=== PATIENT | female | born 1985 | race African-American/Black ===

== ENCOUNTER 2024-03-07 14:13 | Outpatient (REF) | payer MEDICAID, SELFPAY ==
[2024-03-07 16:11] LABS: MANUAL DIFF FLAG NO
[2024-03-07 16:19] LABS: Basophils Percent Auto 0.4 % (0-2); Eosinophils Absolute Auto 0.2 X10*3/uL (0.0-0.4); Eosinophils Percent Auto 2.2 % (0-4); Hematocrit 43.9 % (37.0-47.0); Hemoglobin 14.3 g/dl (12.0-16.0); Imm Gran Abs Auto 0.01 X10*3/uL (0.00-0.03); Imm Gran Pct Auto 0.1 % (0.0-0.4); Lymphocytes Absolute Auto 2.7 X10*3/uL (1.2-4.9); Lymphocytes Percent Auto 29.4 % (20-40); Mean Corpuscular HGB Conc 32.6 g/dl (31.0-35.0); Mean Corpuscular Hemoglobin 28.8 pg (27.0-33.0); Mean Corpuscular Volume 88.3 fL (80.0-98.0); Mean Platelet Volume 10.1 fL (9.4-12.3); Monocytes Absolute Auto 0.7 X10*3/uL (0.1-1.2); Monocytes Percent Auto 7.6 % (2-11); Neutrophils Absolute Auto 5.5 x10*3/uL (2.0-8.3); Neutrophils Percent Auto 60.3 % (45-73); Platelet Count 234 X10*3/uL (160-400); Red Blood Count 4.97 X10*6/uL (4.20-5.50); Red Cell Distribution Width 11.8 % (11.0-16.0); White Blood Count 9.1 X10*3/uL (4.8-10.8)
[2024-03-07 16:39] LABS: Alanine Aminotransferase 28 U/L (0-31); Albumin Level 4.3 g/dL (3.5-5.0); Alkaline Phosphatase 64 U/L (39-117); Anion Gap 12 (12-20); Aspartate Amino Transferase 19 U/L (5-31); Bilirubin Total 0.4 mg/dL (0.0-1.0); Blood Urea Nitrogen 16 mg/dL (9-16); C Reactive Protein < 0.10 mg/dL (< or = 0.50); Calcium 9.5 mg/dL (8.4-10.2); Carbon Dioxide 24 mmol/L (22-29); Chloride 105 mmol/L (96-108); Estimated Glomerular Filt Rate > 60; Glucose Random 85 mg/dL (60-115); Lipase 29 U/L (8-78); Potassium 4.1 mmol/L (3.3-5.1); Sodium 137 mmol/L (135-145); Total Protein 7.6 g/dL (6.5-8.0)
[2024-03-07 16:58] LABS: Erythrocyte Sedimentation Rate 2 MM/HR (0-20)
[2024-03-08 08:39] LABS: ~HepC Num1 0.15 S/CO (0.00-0.79); ~Hepatitis C Antibody Nonreactive (Nonreactive)
== END 2024-03-07 14:14 | disposition home or self-care (01) ==
LOC: HO.HHCL 14:13
PROVIDERS: Visit Provider Nurse Practitioner Family
DX: R10.11 Right upper quadrant pain (principal)
CPT/HCPCS: 36415; 80053; 83690; 85025; 85652; 86140; 86803

== ENCOUNTER 2024-03-24 | Outpatient (REF) | payer MEDICAID, SELFPAY ==
[2024-03-27 10:28] LABS: HPV 16,18/45 See PAP report
[2024-03-28 17:17] LABS: Trichomonas (NAAT) NOT DETECTED (NOT DETECTED)
[2024-03-28 17:54] LABS: C. trachomatis RNA TMA NOT DETECTED (NOT DETECTED); N. gonorrhoeae RNA TMA NOT DETECTED (NOT DETECTED)
== END 2024-03-24 00:01 | disposition home or self-care (01) ==
LOC: HO.LNP
PROVIDERS: Visit Provider Nurse Practitioner Family
DX: Z12.4 Encounter for screening for malignant neoplasm of cervix (principal)
CPT/HCPCS: 87491; 87591; 87624; 87661; 88175

== ENCOUNTER 2024-03-28 17:43 | Outpatient (REF) | payer MEDICAID, SELFPAY | END 2024-03-28 17:44 | disposition home or self-care (01) | LOC: HO.HHCLNP 17:43 | PROVIDERS: Visit Provider Nurse Practitioner Family | DX: R30.0 Dysuria (principal) | CPT/HCPCS: 87086 ==

== ENCOUNTER 2024-05-18 11:26 | Outpatient (REF) | payer MEDICAID, SELFPAY ==
[2024-05-18 13:08] LABS: MANUAL DIFF FLAG NO
[2024-05-18 13:19] LABS: Basophils Percent Auto 0.3 % (0-2); Eosinophils Absolute Auto 0.2 X10*3/uL (0.0-0.4); Eosinophils Percent Auto 2.3 % (0-4); Hematocrit 45.2 % (37.0-47.0); Hemoglobin 14.8 g/dl (12.0-16.0); Imm Gran Abs Auto 0.03 X10*3/uL (0.00-0.03); Imm Gran Pct Auto 0.4 % (0.0-0.4); Lymphocytes Absolute Auto 1.2 X10*3/uL (1.2-4.9); Lymphocytes Percent Auto 16.8 % (20-40); Mean Corpuscular HGB Conc 32.7 g/dl (31.0-35.0); Mean Corpuscular Volume 88.5 fL (80.0-98.0); Mean Platelet Volume 10.3 fL (9.4-12.3); Monocytes Absolute Auto 0.5 X10*3/uL (0.1-1.2); Monocytes Percent Auto 7.5 % (2-11); Neutrophils Absolute Auto 5.2 x10*3/uL (2.0-8.3); Neutrophils Percent Auto 72.7 % (45-73); Platelet Count 226 X10*3/uL (160-400); Red Blood Count 5.11 X10*6/uL (4.20-5.50); Red Cell Distribution Width 11.2 % (11.0-16.0); White Blood Count 7.1 X10*3/uL (4.8-10.8)
[2024-05-18 13:26] LABS: Amylase 59 U/L (28-100)
[2024-05-18 13:36] LABS: Alanine Aminotransferase 14 U/L (0-31); Albumin Level 4.3 g/dL (3.5-5.0); Alkaline Phosphatase 62 U/L (39-117); Anion Gap 8 (12-20); Aspartate Amino Transferase 22 U/L (5-31); Bilirubin Direct 0.3 mg/dL (0.0-0.5); Bilirubin Total 0.7 mg/dL (0.0-1.0); Blood Urea Nitrogen 12 mg/dL (9-16); Carbon Dioxide 26 mmol/L (22-29); Chloride 109 mmol/L (96-108); Cholesterol 148 mg/dL (<200); Estimated Glomerular Filt Rate > 60; Glucose Random 95 mg/dL (60-115); HDL Cholesterol 52 mg/dL (>40); LDL Cholesterol Calculated 86 mg/dL (<100); Lipase 19 U/L (8-78); Potassium 4.1 mmol/L (3.3-5.1); Sodium 139 mmol/L (135-145); Total Protein 7.9 g/dL (6.5-8.0); Triglycerides 53 mg/dL (<150)
[2024-05-19 14:26] LABS: H Pylori Breath Test Negative (Negative)
[2024-05-21 15:02] LABS: RPR Rapid Plasma Reagin NON-REACTIVE (NON-REACTIVE)
[2024-05-22 10:53] LABS: HIV RNA PCR Qn Copies Not Detected Copies/mL; HIV RNA PCR Qn Log Copies Not Detected Log cps/mL
== END 2024-05-18 11:27 | disposition home or self-care (01) ==
LOC: HO.HHCL 11:26
PROVIDERS: Nurse Practitioner Family; Visit Provider Family Medicine
DX: Z00.00 Encounter for general adult medical examination without abnormal findings (principal); R10.13 Epigastric pain; R10.31 Right lower quadrant pain; Z11.3 Encounter for screening for infections with a predominantly sexual mode of transmission
CPT/HCPCS: 36415; 80053; 80061; 82150; 82248; 83013; 83690; 85025; 86592; 87536; 87900

== ENCOUNTER 2024-07-03 08:37 | Outpatient (REF) | payer MEDICAID, SELFPAY ==
--- NOTE | ~2024-07-03 | US_ITS ---
.EXAMINATION: US ABDOMEN COMPLETE CLINICAL INFORMATION: Epigastric pain.. COMPARISON: None available. TECHNIQUE: Real-time imaging of the abdominal viscera using grayscale and color Doppler technique. FINDINGS: PANCREAS: No peripancreatic fluid collection. ABDOMINAL AORTA: The proximal, mid, and distal segments are normal in caliber. INFERIOR VENA CAVA: Visualized portions are normal. LIVER: Liver measures 13 cm. Normal echotexture. No nodular surface. No solid or cystic lesion. No intrahepatic biliary ductal dilatation. Main portal vein is patent with normal hepatopedal flow direction. GALLBLADDER: Fluid-filled. No pericholecystic fluid collection or gallbladder wall thickening. COMMON BILE DUCT: 2 mm. RIGHT KIDNEY: 10 cm. Normal echotexture. No hydronephrosis. No gross solid or cystic lesion. LEFT KIDNEY: 9 cm. No hydronephrosis. Normal echotexture. No gross solid or cystic lesion. SPLEEN: 10 cm. No focal lesion.. FREE FLUID: None. US/US abdomen complete IMPRESSION: No cholelithiasis. No hydronephrosis. No ascites. Normal exam. Electronically signed by: Ron Castorena MD 07/03/2024 09:16 AM EST
--- OUTSIDE RECORDS SUMMARY | 2024-07-03 09:05 | XMS_ITS | Referral Summary ---
Author Organization [facility] Address [address] [place] [address] Care Team Providers Care Computer Engineering Technician Name Role Phone Shannan Milner NP Primary Care Provider [phone] Allergies No known active allergies Medications Vienva 0.1-20 mg-mcg per tablet Take 1 tablet by mouth once a day. 10/10/2023 Active multivitamin (THERAGRAN) tablet Take 1 tablet by mouth once a day. Active Active Problems Problem Noted Date Diagnosed Date Varicose veins of lower extremity with pain, oneil ateral 12/13/2023 Social History Tobacco Use Types Packs/Day Years Used Date Smoking Tobacco: Never Smokeless Tobacco: Never Tobacco Cessation:Counseling Given: Not Answered Comments Unknown Sex and Gender Information Value Date Recorded Sex Assigned at Female 09/14/2023 7:22 AM EDT Legal Sex Female 11:11 AM EDT Gender Identity Not on file Sexual Orientation Not on file Last Filed Vital Signs Vital Sign Reading Time Taken Comments Blood Pressure 93/60 12/13/2023 10:59 AM EDT Pulse 78 12/13/2023 10:53 AM EDT Temperature - - Respiratory Rate 16 12/13/2023 10:53 AM EDT Oxygen Saturation 100% 12/13/2023 10:53 AM EDT Inhaled Oxygen Concentration - - Weight 64.4 kg (142 lb) 12/13/2023 10:53 AM EDT Height 165.1 cm (5' 5 ) 12/13/2023 10:53 AM EDT Body Mass Index 23.63 12/13/2023 10:53 AM EDT Plan of Treatment Not on file Insurance HSNO/FREE CARE Care Teams Computer Engineering Technician Relationship Specialty Start Date End Date Shannan Milner NP [address] [place] [address] PCP - General Family Medicine 12/02/23
--- OUTSIDE RECORDS SUMMARY | 2024-07-03 09:05 | XMS_ITS | Encounter Summary ---
Author Organization [employer] Address [address] [place] [address] [address] [place] [address] Care Team Providers Care Water Resource Consultant Name Role Phone Kathryn Urrutia NP Primary Care Provider [phone] Reason for Visit * Reason Comments Extraction Encounter Details Date Type Department Care Team ([facility] st Contact Info) Description 06/20/2024 2:00 PM EST Office Visit [facility] ADULT DENTAL [address] [place], [place] [phone] Real Christensen, LUCIOS [address] [place], [place] [phone] Dental abscess (Primary Dx); Failing root canal Social History Tobacco Use Types Packs/Day Years Used Date Smoking Tobacco: Never Passive Smoke Exposure: Never Smokeless Tobacco: Never Alcohol Use Standard Drinks/Week Comments Not Currently 0 (1 standard drink = 0.6 oz pur e alcohol) Depression Answer Date Recorded Patient Health Questionnaire-9 Score 3 09/06/2023 Patient Health Questionnaire-9 Score 3 09/06/2023 Last PHQ-9: Questionnaire Data Not on file 0 09/06/2023 Housing Stability Answer Date Recorded What is your housing situation today? I have divina villarreal 09/06/[address] you li ve. Do you have problems with any of the following? None of the above 09/06/2023 Food Insecurity Answer Date Recorded Within the past 12 months, y ou worried that your food would run out before you got money to buy more: Never True 09/06/2023 Within the past 12 months,th e food you bought just didn't last and you didn't have enough money to get more: Never True 10/2023 Transportation Answer Date Recorded In the past 12 months, has l ack of transportation kept you from medical appts, meetings, work or from getting things needed for daily living? No 09/06/2023 Utilities Answer Date Recorded In the past 12 months, has t he electric, gas, oil or water company threatened to shut off services in your home? No 09/06/2023 Depression Answer Date Recorded Patient Health Questionnaire-2 Score 0 09/06/2023 Comments No Sex and Gender Information Value Date Recorded Sex Assigned at Female 11/10/2022 4:06 PM EDT Legal Sex Female 4:01 PM EDT Gender Identity Female 11/10/2022 4:06 PM EDT Sexual Orientation Straight 03/07/2024 2: 58 PM EST documented as of this encounter Last Filed Vital Signs Vital Sign Reading Time Taken Comments Blood Pressure 128/74 06/20/2024 2:20 PM EST Pulse - - Temperature - - Respiratory Rate - - Oxygen Saturation - - Inhaled Oxygen Concentration - - Weight - - Height - - Body Mass Index - - documented in this encounter Progress Notes * Real Christensen DDS - 06/20/2024 2:00 PM EST Patient ID: Emilee Saavedra is a 39 y.o. female. Time Out: Timeout Date: 06/20/24, Timeout Time: 1421 (EXT ON TOOTH #5) Location: [facility] Tooth: Maxilla and #5 Procedure: Extraction Verified the above with patient, ambulance assistant, and provider. Confirmed via patient's chart, intraorally and by radiographs. Cupola Charger: not applicable Chief Complaint Patient presents with Extraction Medical Hx: Vitals: Blood pressure 128/74, unknown if currently . History reviewed. No pertinent past medical history. Medications: Outpatient Encounter Medications as of 06/20/2024 Medication Sig Dispense Refill docusate sodium (Colace) 100 MG capsule Take 1 capsule (100 mg) by mouth 2 times daily. 180 capsule3 omeprazole OTC (PriLOSEC OTC) 20 MG EC tablet Take 1 tablet (20 mg) by mouth before breakfast and before evening meal. Do not crush, chew, or split. 180 tablet 3 polycarbophil (Fibercon) 625 MG tablet Take 1 tablet (625 mg) by mouth 2 times daily. 180 tablet 3 polyethylene glycol, PEG, 3350 (MiraLax) 17 GM/SCOOP powder Take 17 g by mouth if needed each day (constipation). 527 g 3 Simethicone (Gas-Ex) 125 MG tablet tablet Take 1 tablet (125 mg) by mouth if needed in the morning,at noon, in the evening, and at bedtime (abd pain/gas). 30 tablet 1 No facility-administered encounter medications on file as of 06/20/2024. Consent Obtained: The risks, benefits, indications, potential complications, and alternatives were explained to the patient and informed consent was obtained with good understanding. Treatment Provided: Dental procedures in this visit D7210 - EXTRACTION, ERUPTED TOOTH REQ REMOVAL OF BONE AND/OR SECTIONING OF TOOTH 5 (Completed) Service provider: Real Christensen DDS Billing provider: Real Christensen DDS [id number] - CASE PRESENTATION, DETAILED AND EXTENSIVE TREATMENT PLANNING (Completed) Service provider: Real Christensen DDS Billing provider: Real Christensen DDS Diagnosis: Dental abscess, failing RCT Topical: 20% Benzocaine Anesthesia: 2% Lidocaine (Xylocaine) w/ 1:100,000 epinephrine Number of Cartridges: 1 Injection Type: Buccal infiltration and Palatal infiltration Confirmed profound anesthesia. Pharyngeal curtain and bite block placed. Removed tooth with elevators and forceps. Apices intact. Surgical Extraction: Yes, #5 Socket curetted & irrigated with sterile water. Compressed alveolar bone. Sutures: None Needed All adjacent teeth intact. Hemostasis achieved. Complications: None. Pt. Tolerated procedure well. Pt stated having analgesics at home. Written and verbal post-op instructions given. Patient discharged in stable condition; ambulatory, alert, and oriented. NV: F/U as needed / Referred back to Dr. Echeverria Fiscal Agent: Talya Avery Dentist: Real Christensen DDS documented in this encounter Plan of Treatment Upcoming Encounters Date Type Department Care Team (Late st Contact Info) Description 07/18/2024 2:30 PM EDT Office Visit [facility] ADULT DENTAL [address] [place] [address] Laina Pelayo DDS [address] [place], [place] [phone] documented as of this encounter Procedures Procedure Name Priority Date/Time Associated Diagnosis Comments 5 EXTRACTION, ERUPTED TOOTH REQ REMOVAL OF BONE AND/OR SECTIONING OF TOOTH Routine 06/20/2024 2:00 PM EST CASE PRESENTATION, DETAILED AND EXTENSIVE TREATMENT PLANNING Routine 06/20/2024 2:00 PM EST documented in this encounter Visit Diagnoses Diagnosis Dental abscess- Primary Periapical abscess without sinus Failing root canal documented in this encounter Additional Health Concerns Assessment Noted Time PHQ-9 Depression Total Score: 3 09/06/19 24 3:17 PM EDT documented as of this encounter Care Teams Water Resource Consultant Relationship Specialty Start Date End Date Kathryn Urrutia NP [address] [place] [address] PCP - General Family Medicine 01/11/24 documented as of this encounter
--- OUTSIDE RECORDS SUMMARY | 2024-07-03 09:05 | XMS_ITS | Encounter Summary ---
Author Organization [employer] Address [address] [place] [address] [address] [place] [address] Care Team Providers Care Pile Fabric Knitter Name Role Phone Kathryn Urrutia NP Primary Care Provider [phone] Encounter Details Date Type Department Care Team (Late st Contact Info) Description 11/16/2022 Orders Only [facility] MEDICINE [address] [place] [address] Eufemia Solomon FNP [address] [place], [place] [phone] Epigastric pain Social History Tobacco Use Types Packs/Day Years Used Date Smoking Tobacco: Never Passive Smoke Exposure: Never Smokeless Tobacco: Never Comments Unknown Sex and Gender Information Value Date Recorded Sex Assigned at Female 11/10/2022 4:06 PM EDT Legal Sex Female 4:01 PM EDT Gender Identity Female 11/10/2022 4:06 PM EDT Sexual Orientation Straight 03/07/2024 2: 58 PM EST COVID-19 Exposure Response Date Recorded In the last 10 days, have yo u been in contact with someone who was confirmed or suspected to have Coronavirus/COVID-19? No / Unsure 11/10/2022 4:08 PM EDT documented as of this encounter Plan of Treatment Upcoming Encounters Date Type Department Care Team (Late st Contact Info) Description 07/18/2024 2:30 PM EDT Office Visit [facility] ADULT DENTAL [address] [place] [address] Laina Pelayo DDS [address] [place] [address] documented as of this encounter Visit Diagnoses Diagnosis Epigastric pain Abdominal pain, epigastric documented in this encounter Care Teams Pile Fabric Knitter Relationship Specialty Start Date End Date Kathryn Urrutia NP [address] [place] [phone] PCP - General Family Medicine 01/11/24 documented as of this encounter
--- OUTSIDE RECORDS SUMMARY | 2024-07-03 09:05 | XMS_ITS | Encounter Summary ---
Author Organization [employer] [facility] Address [address] [place] [address] [address] [place] [address] Care Team Providers Care Grinder Brake Lining Name Role Phone Kathryn Urrutia NP Primary Care Provider [phone] Reason for Visit * Reason Comments Med Refill Encounter Details Date Type Department Care Team (Late st Contact Info) Description 02/07/[address] [facility] MEDICINE [address] [place] [address] Eufemia Solomon FNP [address] [place] [address] Epigastric pain Social History Tobacco Use Types Packs/Day Years Used Date Smoking Tobacco: Never Passive Smoke Exposure: Never Smokeless Tobacco: Never Comments Yes Sex and Gender Information Value Date Recorded Sex Assigned at Female 11/10/2022 4:06 PM EDT Legal Sex Female 4:01 PM EDT Gender Identity Female 11/10/2022 4:06 PM EDT Sexual Orientation Straight 03/07/2024 2: 58 PM EST documented as of this encounter Plan of Treatment Upcoming Encounters Date Type Department Care Team (Late st Contact Info) Description 07/18/2024 2:30 PM EDT Office Visit [facility] ADULT DENTAL [address] [place] [address] Laina Pelayo, DDS [address] [place] [address] documented as of this encounter Visit Diagnoses Diagnosis Epigastric pain Abdominal pain, epigastric documented in this encounter Care Teams Grinder Brake Lining Relationship Specialty Start Date End Date Kathryn Urrutia NP [address] [place] [id number] PCP - General Family Medicine 01/11/24 documented as of this encounter
--- OUTSIDE RECORDS SUMMARY | 2024-07-03 09:05 | XMS_ITS | Clinical Summary ---
Author Organization [facility] Address [address] [place] [address] Care Team Providers Care Dandy Operator Name Role Phone Shannan Milner NP Primary Care Provider [phone] Allergies No known active allergies Medications [...] 12/13/2023 10:53 AM EDT Plan of Treatment Health Maintenance Due Date Last Done Comments Cervical Cancer Screening 1987 HIV Screening 1987 HPV and Pap Smear 1987 Hepatitis C Screening 1987 Pap Smear 1987 Varicella Vaccines (1 of 2 - 13+ 2-dose series) 2000 Hepatitis B Vaccines (2 of 3 - 19+ 3-dose series) 10/04/2023 09/06/2023 COVID-19 Vaccine (1 - 2023-2 5 season) 2024 Influenza Vaccine (#1) 2024 Alcohol/Substance Use Screening 05/03/2024 Depression Screening and Follow-Up 05/03/2024 Social Drivers of Health Della ual Screening 05/03/2024 DTaP,Tdap,and Td Vaccines (2 - Td or Tdap) 09/05/2033 09/06/2023 RSV Vaccine (60+ years old a nd patients) (1 - 1-dose 75+ series) 2062 Pneumococcal Vaccine: Pediat luther (0-5 Years) and At-Risk Patients (6-50 Years) Aged Out No longer eligible b ased on patient's age to complete this topic Insurance HSNO/FREE CARE Care Teams Dandy Operator Relationship Specialty Start Date End Date Shannan Milner NP [address] [place] [id number] PCP - General Family Medicine 12/02/23
--- OUTSIDE RECORDS SUMMARY | 2024-07-03 09:05 | XMS_ITS | Encounter Summary ---
Author Organization [employer] [facility] Address [address] [place] [address] [address] [place] [address] Care Team Providers Care Assembly Room Supervisor Name Role Phone Kathryn Urrutia NP Primary Care Provider [phone] Reason for Visit * Reason Onset Date Comments New patient 12/24/2022 Encounter Details Date Type Department Care Team (Late st Contact Info) Description 12/24/[address] [facility] MEDICINE [address] [place] [address] Stoney Giles MD [address] [place] [address] New patient Social History Tobacco Use Types Packs/Day Years Used Date Smoking Tobacco: Never Passive Smoke Exposure: Never Smokeless Tobacco: Never Comments Yes Sex and Gender Information Value Date Recorded Sex Assigned at Female 11/10/2022 4:06 PM EDT Legal Sex Female 4:01 PM EDT Gender Identity Female 11/10/2022 4:06 PM EDT Sexual Orientation Straight 03/07/2024 2: 58 PM EST documented as of this encounter Miscellaneous Notes * Telephone Encounter - Bina Olea - 12/24/2022 11:45 AM EDT Pt has been transfer over to wait list for RESISTOR WINDER. EFFECTIVE SINCE 12/24/2022 documented in this encounter Plan of Treatment Upcoming Encounters Date Type Department Care Team (Late st Contact Info) Description 07/18/2024 2:30 PM EDT Office Visit [facility] ADULT DENTAL [address] [place] [address] Laina Pelayo, DDS [address] [place] [address] documented as of this encounter Visit Diagnoses Not on filedocumented in this encounter Care Teams Assembly Room Supervisor Relationship Specialty Start Date End Date Kathryn Urrutia NP [address] [place], [place] [phone] PCP - General Family Medicine 01/11/24 documented as of this encounter
--- OUTSIDE RECORDS SUMMARY | 2024-07-03 09:05 | XMS_ITS | Encounter Summary ---
Author Organization [employer] Address [address] [facility] [address]t [place] [address] Care Team Providers Care Whipper Name Role Phone Kathryn Urrutia NP Primary Care Provider [phone] Reason for Visit * Reason Comments Med Refill Encounter Details Date Type Department Care Team ([facility] st Contact Info) Description 05/29/2024 Refill [facility] MEDICINE [address] [place], [place] [phone] Kathryn Urrutia NP [address] [place], [place] [phone] Gastroesophageal reflux disease with esophagitis, unspecified whether hemorrhage Social History Tobacco Use Types Packs/Day Years [...] 2:30 PM EDT Office Visit [facility] ADULT DENTAL [address] [place] [address] Laina Pelayo DDS [address] [place] [address] documented as of this encounter Visit Diagnoses Diagnosis Gastroesophageal reflux disease with esophagitis, unspecified whether hemorrhage documented in this encounter Additional Health Concerns Assessment Noted Time PHQ-9 Depression Total Score: 3 09/06/19 24 3:17 PM EDT documented as of this encounter Care Teams Whipper Relationship Specialty Start Date End Date Kathryn Urrutia NP [address] [place] [address] PCP - General Family Medicine 01/11/24 documented as of this encounter
--- OUTSIDE RECORDS SUMMARY | 2024-07-03 09:05 | XMS_ITS | Encounter Summary ---
Author Organization [employer] Address [address] [place] [address] 7[address] [place] [address] Care Team Providers Care Compound Specialist Name Role Phone Kathryn Urrutia NP Primary Care Provider [phone] Reason for Visit * Reason Onset Date Comments Chart Prep 06/20/2024 Encounter Details Date Type Department Care Team ([facility] st Contact Info) Description 06/20/2024 Telephone [facility] MEDICINE [address] [place], [place] [phone] Lian Snyder MA Chart Prep Social History Tobacco Use Types Packs/Day Years [...] encounter Miscellaneous Notes * Telephone Encounter - Lian Snyder MA - 06/20/2024 2:56 PM EST Chart Prep Labs: done Images: not done Vaccines due: Covid, Hep B Referrals: Radiology 08/14/24 at 4 P[facility] Gastro 07/03/24 at 8:30 Am Screenings: HIV Overdue care gaps: SDOH, PHQ-9 documented in this encounter Plan of Treatment Upcoming Encounters Date Type Department Care Team (Late st Contact Info) Description 07/18/2024 2:30 PM EDT Office Visit [facility] ADULT DENTAL [address] [place] [address] Laina Pelayo, DDS [address] [place] [address] documented as of this encounter Visit Diagnoses Not on filedocumented in this encounter Additional Health Concerns Assessment Noted Time PHQ-9 Depression Total Score: 3 09/06/19 24 3:17 PM EDT documented as of this encounter Care Teams Compound Specialist Relationship Specialty Start Date End Date Kathryn Urrutia NP [address] [place] [address] PCP - General Family Medicine 01/11/24 documented as of this encounter
--- OUTSIDE RECORDS SUMMARY | 2024-07-03 09:06 | XMS_ITS | Clinical Summary ---
Author Organization [employer] Address [address] [place] [address] [address] [place] [address] Care Team Providers Care Set Up / Operator Name Role Phone Kathryn Urrutia NP Primary Care Provider [phone] Allergies No known active allergies Medications polycarbophil (Fibercon) 625 MG tablet Take 1 tablet (625 mg) by mouth 2 times daily. 180 tablet 3 5 05/18/19 26 Active docusate sodium (Colace) 100 MG capsule Take 1 capsule (100 mg) by mouth 2 times daily. 180 capsule 3 5 05/18/19 26 Active omeprazole OTC (PriLOSEC OTC) 20 MG EC tablet Take 1 tablet (20 mg) by mouth before breakfast and before evening meal. Do not crush, chew, or split. 180 tablet 3 5 05/18/19 26 Active polyethylene glycol, PEG, 3350 (MiraLax) 17 GM/SCOOP powder Take 17 g by mouth if needed each day (constipation) . 527 g 3 5 05/18/19 26 Active Simethicone (Gas-Ex) 125 MG tablet tablet Take 1 tablet (125 mg) by mouth if needed in the morning, at noon, in the evening, and at bedtime (abd pain/gas). 30 tablet 1 5 Active Active Problems Problem Noted Date Diagnosed Date Dental abscess 06/20/2024 Failing root canal 06/20/2024 Nexplanon insertion 03/28/2024 Assessment & Plan (05/15/2024 1:27 PM EST): Inserted without complication RLQ abdominal pain 03/28/2024 Cervical cancer screening 03/24/2024 Assessment & Plan (04/08/2024 2:13 PM EST): Pap , hpv cotest and sti screening completed today RUQ pain 03/07/2024 Assessment & Plan (03/07/2024 4:29 PM EST): Pt reports longstanding episodic ruq pain , no relationship to food Labs as ordered below Ultrasound ordered Encouraged low acid diet interim Gastroesophageal reflux disease with esophagitis 03/07/2024 Assessment & Plan (03/07/2024 4:30 PM EST): Pt endorses acid symptoms, Trial ppi, Follow up appointment scheudled Encounter for contraceptive planning 03/07/2024 Assessment & Plan (03/07/2024 4:31 PM EST): Pt is interested in nexplanon and pap smear Has had nexplanon before Reviewed barrier protection until contraception inplace Varicose veins of lower extremity with pain, oneil ateral 12/13/2023 Other constipation 11/11/2022 Assessment & Plan (11/11/2022 3:38 PM EDT): ?? Encouraged fiber rich diet, good hydration, and movement ?? Start miralax daily PRN. Reviewed med use and SE Epigastric pain 11/11/2022 Assessment & Plan (11/11/2022 3:38 PM EDT): ?? Differentials include cardiac vs GERD vs H. Pylori vs gastritis vs PUD vs other ?? EKG NSR with no ST T-wave elevations on 11/10/22 ?? Urea breath test for further eval of H. Pylori ?? Encouraged to start famotidine after completion of urea breath test. ?? ED/urgent care precautions reviewed Resolved Problems Problem Noted Date Diagnosed Date Resolved Date Dysuria 03/28/2024 05/18/2024 Acute cystitis without hematuria 03/28/2024 05/18/2024 8 weeks gestation of 12/07/2022 03/07/2024 Overview (12/07/2022): MVI Referral to DISTRICT SERVICE MANAGER Encounters Date Type Department Care Team Description 06/27/2024 1:45 PM EST Office Visit [facility] MEDICINE [address] [place] [phone] Kathryn Urrutia NP 06/20/2024 2:00 PM EST Office Visit [facility] ADULT DENTAL [address] [place] [address] Real Christensen DDS Dental abscess (Primary Dx); Failing root canal 06/20/2024 Telephone [facility] MEDICINE [address] [place] [phone] Lian Snyder MA Chart Prep 05/29/2024 Refill [facility] MED[facility]INE [address] [place] [address] Kathryn Urrutia NP Gastroesophageal reflux disease with esophagitis, unspecified whether hemorrhage 05/18/2024 11:30 AM EST Office Visit [facility] ADULT DENTAL [address] [place] [phone] Laina Pelayo DDS Dental caries (Primary Dx); Symptomatic periapical periodontitis; Failing root canal 05/18/2024 10:20 AM EST Office Visit [facility] WALK-IN CENTER [address] [place] [phone] Jenna Mclain DO Epigastric pain (Primary Dx); Recurrent headache 05/18/2024 Orders Only [facility] MEDICINE [address] [place] [phone] Shannan Milner FNP from Last 3 Months Immunizations Name Administration Dates Next Due Hep B, adult 09/06/2023 Influenza, seasonal, injectable, preservative fr ee 03/07/2024 Tdap 09/06/2023 Social History Tobacco Use Types Packs/Day Years Used Date Smoking Tobacco: Never Passive Smoke Exposure: Never Smokeless Tobacco: Never Tobacco Cessation:Counseling Given: Not Answered Alcohol Use Standard Drinks/Week Comments Not Currently 0 (1 standard drink = 0.6 oz pur e alcohol) Depression Answer Date Recorded Patient Health Questionnaire-9 Score 9 06/27/2024 Patient Health Questionnaire-9 Score 9 06/27/2024 Last PHQ-9: Questionnaire Data Not on file 0 06/27/2024 Housing Stability Answer Date Recorded What is [...] Answer Date Recorded Patient Health Questionnaire-2 Score 3 06/27/2024 Comments No Sex and Gender Information Value Date Recorded Sex Assigned at Female 11/10/2022 4:06 PM EDT Legal Sex Female 4:01 PM EDT Gender Identity Female 11/10/2022 4:06 PM EDT Sexual Orientation Straight 03/07/2024 2: 58 PM EST Last Filed Vital Signs Vital Sign Reading Time Taken Comments Blood Pressure 115/72 06/27/2024 1:54 PM EST Pulse 87 06/27/2024 1:54 PM EST Temperature 35.6 ??C (96 ??F) 06/27/2024 1:54 PM EST Respiratory Rate 16 06/27/2024 1:54 PM EST Oxygen Saturation 99% 05/18/2024 10:19 AM EST Inhaled Oxygen Concentration - - Weight 69.2 kg (152 lb 9.6 oz) 06/27/2024 1:54 P M EST Height 165.1 cm (5' 5 ) 06/27/2024 1:54 PM EST Body Mass Index 25.39 06/27/2024 1:54 PM EST Plan of Treatment Upcoming Encounters Date Type Department Care Team (Late st Contact Info) Description 07/18/2024 2:30 PM EDT Office Visit [facility] ADULT DENTAL [address] [place] [address] Laina Pelayo, DDS [address] [place] [address] Health Maintenance Due Date Last Done Comments Dental Oral Exam 1985 Dental Prophylaxis 1985 Dental X-Ray: Full Mouth 1985 HIV Screening 1985 Family Planning (PISQ) 2002 Hepatitis B Vaccines (2 of 3 - 19+ 3-dose series) 10/04/2023 09/06/2023 COVID-19 Vaccine ( - 2023-2 5 season) 2024 SDOH Screening 09/05/2024 09/06/2023 Depression Monitoring (PHQ-9) 12/25/2024, 06/27/2024 Alcohol/Substance Use Screening 03/28/2025 03/28/2024 Dental X-Ray: Bitewings 05/19/2025 05/18/2024 Depression Screening 06/27/2025 06/27/2024, 06/27/2024 Tobacco Screening 06/27/2025 06/27/2024 Cervical Cancer Screening 03/24/2029 HPV/Cotest 03/24/2029 Pap Smear 03/24/2029 03/24/2024 DTaP/Tdap/Td Vaccines (2 - T d or Tdap) 09/05/2033 09/06/2023 Zoster Vaccines (1 of 2) 2037 RSV Patients and Patients Aged 60 years or older (1 - 1-dose 75+ series) 2062 Hepatitis C Screening Completed 03/07/2024 Influenza Vaccine Completed 03/07/2024 HIB Vaccines Aged Out No longer eligi ble based on patient's age to complete this topic HPV Vaccines Aged Out No longer eligi ble based on patient's age to complete this topic Hepatitis A Vaccines Aged Out No long er eligible based on patient's age to complete this topic IPV Vaccines Aged Out No longer eligi ble based on patient's age to complete this topic Meningococcal Vaccine Aged Out No cj jefferson eligible based on patient's age to complete this topic Pneumococcal Vaccine: Pediatrics (0 to 5 Years) and At-Risk Patients (6 to 49) Years) Aged Out No longer eligible b ased on patient's age to complete this topic RSV under 20 months Aged Out No longe r eligible based on patient's age to complete this topic Rotavirus Vaccines Aged Out No longer eligible based on patient's age to complete this topic Procedures Procedure Name Priority Date/Time Associated Diagnosis Comments CASE PRESENTATION, DETAILED AND EXTENSIVE TREATMENT PLANNING Routine 06/20/2024 2:00 PM EST 5 EXTRACTION, ERUPTED TOOTH REQ REMOVAL OF BONE AND/OR SECTIONING OF TOOTH Routine 06/20/2024 2:00 PM EST CASE PRESENTATION, DETAILED AND EXTENSIVE TREATMENT PLANNING Routine 05/18/2024 11:30 AM EST Dental caries Symptomatic periapical periodontitis Failing root canal BITEWING - SINGLE RADIOGRAPHIC IMAGE Routine 05/18/2024 11:30 AM EST Dental caries Symptomatic periapical periodontitis Failing root canal INTRAORAL - PERIAPICAL IMAGE - CONVERSION Routine 05/18/2024 11:30 AM EST Dental caries Symptomatic periapical periodontitis Failing root canal CASE PRESENTATION, DETAILED AND EXTENSIVE TREATMENT PLANNING Routine 05/18/2024 11:30 AM EST Dental caries Symptomatic periapical periodontitis Failing root canal PALLIATIVE (EMERGENCY) TREATMENT OF DENTAL PAIN - MINOR PROCEDURE Routine 05/18/2024 11:30 AM EST Dental caries Symptomatic periapical periodontitis Failing root canal HIV 1 RNA, QN PCR W/RFL DARIAN (RTI,PI,INTEGRASE) Routine 05/18/2024 11:30 AM EST RPR (MONITOR) W/REFL TITER Routine 05/18/2024 11:30 AM EST LIPID PANEL, STANDARD Routine 05/18/2024 11:30 AM EST COMPREHENSIVE METABOLIC PANEL Routine 05/18/2024 11:30 AM EST LIPASE Routine 05/18/2024 11:30 AM EST Epigastric pain AMYLASE Routine 05/18/2024 11:30 AM EST Epigastric pain HEPATIC FUNCTION PANEL Routine 11:30 AM EST Epigastric pain CBC WITH AUTO DIFFERENTIAL Routine 05/18/2024 11:30 AM EST RLQ abdominal pain POCT INFLUENZA B (ID NOW RAPID MOLECULAR) Routine 05/18/2024 10:54 AM EST Epigastric pain POCT INFLUENZA A (ID NOW RAPID MOLECULAR) Routine 05/18/2024 10:54 AM EST Epigastric pain POCT RAPID COVID ANTIGEN Routine 05/18/2024 10:54 AM EST Epigastric pain HELICOBACTER PYLORI, UREA BREATH TEST Routine 05/18/2024 10:51 AM EST Epigastric pain 5 PREFABRICATED POST AND CORE IN ADDITION TO CROWN Routine 05/18/2024 12:00 AM EST 5 ROOT CANAL Routine 05/18/2024 12:00 AM EST PAP SMEAR Routine 03/24/2024 12:00 AM EST Cervical cancer screening HEPATITIS C AB W/REFL TO HCV RNA, QN, PCR Routine 03/07/2024 2:15 PM EST RUQ pain from Last 3 Months or Most Recently Relevant to Health Maintenance Results * HIV-1 RNA, Quantitative, Real-Time PCR with Reflex to Genotype (RTI, PI, Integrase) (05/18/2024 11:30 AM EST) HIV RNA PCR Qn Copies Not Detected Copies/mL [facility] HIV RNA PCR Qn Log Copies Not Detected Log cps/mL [facility] Comment:Reference Range: Not Detected copies/mL Not Detected Log copies/mLThe test was performed using Real-Time Polymerase ChainReaction.Reportable Range: 20 copies/mL to 10,000,000 copies/mL(1.30 Log copies/mL to 7.00 Log copies/mL).THIS TEST WAS PERFORMED AT:[facility] [place] [id number] COHEN MD,PHD HIV-1 Genotype Progressive [facility] HIV 1 Genotype [facility] Comment:Test not indicated. 05/18/2024 11:3 0 AM EST 05/18/2024 1:03 PM EST Shannan Milner MARKETING SENIOR RECRUITER LAB BLOOD ORDERABLES Final Resu lt [facility] [address] [place] [address] [phone] * (ABNORMAL) CBC auto differential (05/18/2024 11:30 AM EST) White Blood Count 7.1 4.8 - 10.8 X10*3/uL [facility] Red Blood Count 5.11 4.20 - 5.50 X10*6/uL [facility] Hemoglobin 14.8 12.0 - 16.0 g/dl [facility] Hematocrit 45.2 37.0 - 47.0 % [facility] Mean Corpuscular Volume 88.5 80.0 - 98.0 fL [facility] Mean Corpuscular Hemoglobin 29.0 27.0 - 33.0 pg [facility] Mean Corpuscular HGB Conc 32.7 31.0 - 35.0 g/dl [facility] Red Cell Distribution Width 11.2 11.0 - 16.0 % [facility] Platelet Count 226 160 - 400 X10*3/uL [facility] Mean Platelet Volume 10.3 9.4 - 12.3 fL [facility] Neutrophils Percent Auto 72.7 45 - 73 % [facility] Imm Gran Pct Auto 0.4 0.0 - 0.4 % [facility] Lymphocytes Percent Auto 16.8(L) 20 - 40 % [facility] Monocytes Percent Auto 7.5 2 - 11 % [facility] Eosinophils Percent Auto 2.3 0 - 4 % [facility] Basophils Percent Auto 0.3 0 - 2 % [facility] NRBC Pct Auto 0.0 0.0 - 0.2 /100WBC [facility] Neutrophils Absolute Auto 5.2 2.0 - 8.3 x10*3/uL [facility] Imm Gran Abs Auto 0.03 0.00 - 0.03 X10*3/uL [facility] Lymphocytes Absolute Auto 1.2 1.2 - 4.9 X10*3/uL [facility] Monocytes Absolute Auto 0.5 0.1 - 1.2 X10*3/uL [facility] Eosinophils Absolute Auto 0.2 0.0 - 0.4 X10*3/uL [facility] Basophils Absolute Auto 0.0 0.0 - 0.2 X10*3/uL [facility] NRBC Abs Auto 0.000 0.0 - 0.012 X10*3/uL [facility] Blood Venous blood specimen / Unknown 05/18/2024 11:30 AM EST 05/18/2024 1:03 PM EST us Kathryn Urrutia RODBUSTER LAB BLOOD ORDERABLES Final Resul t Performing Organization Address [facility]/ZIP Co de Phone Number [facility] [address] [place] [phone] * RPR (Monitor) with Reflex to??Titer (05/18/2024 11:30 AM EST) Pathologist [facility] RPR (Monitor) w/Refl Titer NON-REACTI VE NON-REACT OSEAS [facility] Comment:THIS TEST WAS PERFOR MED AT:[facility] [place] [id number] MARQUEZ MD Rapid Plasma Reagin Ab Titer TNP [facility] 05/18/2024 11:3 0 AM EST 05/18/2024 1:03 PM EST us Shannan Milner MARKETING SENIOR RECRUITER LAB BLOOD ORDERABLES Final Resu lt Performing Organization Address [facility] Co de Phone Number [facility] [address] [place] [phone] * Lipase (05/18/2024 11:30 AM EST) Pathologist [facility] Lipase 19 8 - 78 U/L [facility] Blood Venous blood specimen / Unknown 05/18/2024 11:30 AM EST 05/18/2024 1:03 PM EST us Jenna Mclain DO LAB BLOOD ORDERABLES Final R esult Performing Organization Address City/[facility]/ZIP Co de Phone Number [facility] [address] [place] [phone] * Amylase (05/18/2024 11:30 AM EST) Amylase 59 28 - 100 U/L [facility] Blood Venous blood specimen / Unknown 05/18/2024 11:30 AM EST 05/18/2024 1:03 PM EST us Jenna Mclain DO LAB BLOOD ORDERABLES Final R esult Performing Organization Address City/[facility]/ZIP Co de Phone Number [facility] [address] [place] [phone] * Hepatic Function Panel (05/18/2024 11:30 AM EST) Bilirubin, Direct 0.3 0.0 - 0.5 mg/dL [facility] Blood Venous blood specimen / Unknown 05/18/2024 11:30 AM EST 05/18/2024 1:03 PM EST Jenna Mclain DO LAB BLOOD ORDERABLES Final R esult Performing Organization Address City/[facility]/ZIP Co de Phone Number [facility] [address] [place] [phone] * Lipid Panel, Standard (05/18/2024 11:30 AM EST) Triglycerides 53 <150 mg/dL [facility] Comment:Desirable Triglyceri de: less than 150 mg/dLBorderline High Triglyceride 150-199 mg/dLHigh Triglyceride: 200-499 mg/dLVery High Triglyceride: greater than or equal to 5OO mg/dL Cholesterol 148 <200 mg/dL [facility] Comment:Desirable Cholestero l: less than 200 mg/dLBorderline High Cholesterol: 200-239 mg/dLHigh Cholesterol: greater than 239 mg/dL LDL Cholesterol Calculated 86 <100 mg/dL [facility] Comment:Desirable LDL: less than 100 mg/dLNear Optimal/Above Optimal LDL: 110- 129 mg/dLBorderline High LDL: 130-159 mg/dLHigh LDL: 160-189 mg/dLVery High LDL: greater than or equal to 190 mg/dL HDL Cholesterol 52 >40 mg/dL [facility] Comment:Desirable HDL: great er than 40 mg/dL Note: This HDL assay may give artificially low results in patients with liver disease. 05/18/2024 11:3 0 AM EST 05/18/2024 1:03 PM EST Shannan Milner MARKETING SENIOR RECRUITER LAB BLOOD ORDERABLES Final Resu lt [facility] [address] [place], [place] [phone] * (ABNORMAL) Comprehensive Metabolic Panel (05/18/2024 11:30 AM EST) Sodium 139 135 - 145 mmol/L [facility] Potassium 4.1 3.3 - 5.1 mmol/L [facility] Chloride 109(H) 96 - 108 mmol/L [facility] Carbon Dioxide 26 22 - 29 mmol/L [facility] Anion Gap 8(L) 12 - 20 [facility] Urea Nitrogen (BUN) 12 9 - 16 mg/dL [facility] Creatinine, Serum 0.86 0.5 - 1.4 mg/dL [facility] Estimated Glomerular Filt Rate >60 [facility] Comment:Chronic Kidney Disea se: Estimated GFR < 60 mL/min/[id number] Kidney Disease: Estimated GFR < 15 mL/min/1.73m2 Glucose 95 60 - 115 mg/dL [facility] Calcium 9.0 8.4 - 10.2 mg/dL [facility] Bilirubin, Total 0.7 0.0 - 1.0 mg/dL [facility] Aspartate Amino Transferase 22 5 - 31 U/L [facility] Alanine Aminotransferase 14 0 - 31 U/L [facility] Total Protein 7.9 6.5 - 8.0 g/dL [facility] Albumin Level 4.3 3.5 - 5.0 g/dL [facility] Alkaline Phosphatase 62 39 - 117 U/L [facility] 05/18/2024 11:3 0 AM EST 05/18/2024 1:03 PM EST Shannan Milner MARKETING SENIOR RECRUITER LAB BLOOD ORDERABLES Final Resu lt Performing Organization Address [facility]/ZIP Co de Phone Number [facility] [address] [place] [phone] * Influenza B (ID NOW Rapid Molecular) (05/18/2024 10:54 AM EST) Influenza B Negative Negative, Indeterminate [facility] Swab 05/18/2024 10:5 4 AM EST Jenna Mclain DO POINT OF CARE TEST ENTER/MILTON T ORDERABLES Final Result Performing Organization Address [facility] Co de Phone Number [facility] [address] [place] [phone] * Influenza A (ID NOW Rapid Molecular) (05/18/2024 10:54 AM EST) Influenza A Negative Negative, Indeterminate [facility] Swab 05/18/2024 10:5 4 AM EST Jenna Mclain DO POINT OF CARE TEST ENTER/MILTON T ORDERABLES Final Result Performing Organization Address [facility] Co de Phone Number [facility] [address] [place] [address] [phone] * POCT Rapid COVID Ag (05/18/2024 10:54 AM EST) Rapid COVID Ag Negative [facility] Swab 05/18/2024 10:5 4 AM EST Jenna Mclain DO POINT OF CARE TEST ENTER/MILTON T ORDERABLES Final Result Performing Organization Address [facility] Co de Phone Number [facility] [address] [place] [phone] [phone] * Helicobacter pylori, Urea Breath Test (05/18/2024 10:51 AM EST) H. pylori Breath Test Negative Negative [facility] Comment:Antimicrobials, prot on pump inhibitors and bismuthpreparations are known to suppress H. pylori. Ingestingthese medications within two weeks prior to performing thebreath test may produce negative test results. A positiveresult is still clinically valid. Breath Oral cavity structure / Unknown 05/18/2024 10:51 AM EST 05/18/2024 1:13 PM EST Jenna Mclain DO LAB BLOOD ORDERABLES Final R esult Performing Organization Address [facility] Co de Phone Number [facility] [address] [place] [phone] * Pap Smear (03/24/2024 12:00 AM EST) Swab Cervix uteri structure / Unknown 03/24/2024 03/27/2024 10:00 AM EST Narrative [facility] - 03/31/2024 12:55 PM EST ----- ------- Name: Emilee Saavedra ? Age/Sex: 38/F ? : 1985 Unit#: [id number] ?? Attend Dr: ?Re03/24/24 ?Status: PRE REF ? Location: HO.LNP ?Disch: ? ----- ------- SPEC : [id number] ?RECD: 03/27/24-1000 ? STATUS: ??SOUT ? REQ NUM: [id number] ? ROBBIE: 03/24/24-0000 ? SUBM DR: Kathryn Urrutia RODBUSTER ? ENTERED: ??03/27/24-1010 ?SP TYPE: Pap Smr ?OTHR : ? ORDERED: ??Pap Smear ? Interpretation ?? Satisfactory for evaluation. ?? Negative for intraepithelial lesion or malignancy. ? HPV High Risk: ??Negative ? HPV Genotyping 16: ??Negative ?? HPV Genotyping 18: ??Negative ?Clinical Information LMP: Unknown date Previous PAP test: Unknown date/findings ? Material Received ?? ThinPrep-Cervical ----- ------- Signed (signature on file) JAVIER Reynoso (ASCP) 03/31/24 [id number] ? ----- ------- ? END OF REPORT ? us Kathryn Urrutia NP LAB CYTOLOGY ORDERABLES Final Re sult [facility] [address] [place] [phone] * Hepatitis C Antibody with Reflex to HCV, RNA, Quantitative, Real-Time PCR (03/07/2024 2:15 PM EST) Hepatitis C Antibody Nonreactive Nonreactive [facility] Comment:Antibodies to HCV no t detected; does not exclude early acuteHCV infection. Blood Venous blood specimen / Unknown 03/07/2024 2:15 PM EST 03/07/2024 4:07 PM EST us Kathryn Urrutia RODBUSTER LAB BLOOD ORDERABLES Final Resul t [facility] [address] [place] [phone] from Last 3 Months or Most Recently Relevant to Health Maintenance Insurance [facility] AD[facility] Care Teams Set Up / Operator Relationship Specialty Start Date End Date Kathryn Urrutia NP [address] [place] [phone] PCP - General Family Medicine 01/11/24
--- OUTSIDE RECORDS SUMMARY | 2024-07-03 09:06 | XMS_ITS | Encounter Summary ---
Author Organization [employer] Address [address] [facility] [address] [place] [address] Care Team Providers Care Shuttle Car Operator Name Role Phone Kathryn Urrutia NP Primary Care Provider [phone] Encounter Details Date Type Department Care Team ([facility] st Contact Info) Description 06/27/2024 1:45 PM EST Office Visit [facility] MEDICINE [address] [place], [place] [phone] Kathryn Urrutia NP [address] [place] [address] Social History Tobacco Use Types Packs/Day Years [...] 16 06/27/2024 1:54 PM EST Oxygen Saturation - - Inhaled Oxygen Concentration - - Weight 69.2 kg (152 lb 9.6 oz) 06/27/2024 1:54 P M EST Height 165.1 cm (5' 5 ) 06/27/2024 1:54 PM EST Body Mass Index 25.39 06/27/2024 1:54 PM EST documented in this encounter Plan of Treatment Upcoming Encounters Date Type Department Care Team (Late st Contact Info) Description 07/18/2024 2:30 PM EDT Office Visit [facility] ADULT DENTAL [address] [place] [address] Laina Pelayo, DDS [address] [place] [address] documented as of this encounter Visit Diagnoses Not on filedocumented in this encounter Additional Health Concerns Assessment Noted Time PHQ-9 Depression Total Score: 9 06/27/19 25 3:02 PM EST documented as of this encounter Care Teams Shuttle Car Operator Relationship Specialty Start Date End Date Kathryn Urrutia NP [address] [place] [address] PCP - General Family Medicine 01/11/24 documented as of this encounter
== END 2024-07-03 08:38 | disposition home or self-care (01) ==
LOC: HO.US 08:37
PROVIDERS: PCP Family Medicine; Visit Provider Family Medicine
DX: R10.13 Epigastric pain (principal)
CPT/HCPCS: 76700

== ENCOUNTER → 2024-07-03 08:38 | Outpatient (BNV) | payer MEDICAID, SELFPAY | PROVIDERS: PCP Family Medicine; Visit Provider Radiology Diagnostic Radiology | DX: R10.13 Epigastric pain (principal) | CPT/HCPCS: 76700 ==